=== PATIENT | male | born 1985 | race African-American/Black ===

== ENCOUNTER 2018-11-09 18:34 | Emergency (ER) | payer OTHER ==
[~2018-11-09] VITALS: Ht 160 cm; Wt 54.9 kg
[2018-11-09 21:46] VITALS: BP 127/88
[2018-11-09] MEDS ORDERED: AUGMENTIN 875-1 EACH PO (22:19)
== END 2018-11-09 22:42 | disposition home or self-care (01) ==
LOC: ER 18:34
DX: S51.811A Laceration without foreign body of right forearm, initial encounter (principal); W54.0XXA Bitten by dog, initial encounter; Y92.89 Other specified places as the place of occurrence of the external cause; Y93.89 Activity, other specified; Y99.8 Other external cause status